=== PATIENT | female | born 1980 | race Hispanic/Latino ===

== ENCOUNTER 2017-02-06 16:16 | Outpatient (CLI) | payer OTHER ==
--- NOTE | 2017-02-06 16:37 | RAD ---
PA AND LATERAL VIEWS CHEST: 02/06/17 HISTORY: Chest pain, upper abdominal pain. FINDINGS: The cardiomediastinum is normal. The lungs are well expanded clear. The bony thorax is normal. IMPRESSION: Normal exam. POS: [facility]
== END 2017-02-06 16:17 | disposition home or self-care (01) ==
LOC: RAD-FRANK 16:16
PROVIDERS: ATTEND Nurse Practitioner Family
DX: R10.13 Epigastric pain (principal)
CPT/HCPCS: 71020

== ENCOUNTER 2017-07-29 14:03 | Outpatient (CLI) | payer BC ==
--- NOTE | 2017-07-30 17:42 | MMO ---
BILATERAL SCREENING MAMMOGRAMS: Date: 07/29/17 Comparison made to prior exams from 2017 and 2012 from outside institution. This patient's mammogram was interpreted with the assistance of computer-aided detection. FINDINGS: Scattered fibroglandular densities. There are benign calcifications which appear stable. No suspiciou s finding or interval change. Recommend one year follow-up. IMPRESSION: BIRADS 2: Benign Finding(s) POS: [facility]
== END 2017-07-29 14:04 | disposition home or self-care (01) ==
LOC: SCSMAMMO 14:03
PROVIDERS: ATTEND Nurse Practitioner Family
DX: Z12.31 Encounter for screening mammogram for malignant neoplasm of breast (principal)
CPT/HCPCS: 77067

== ENCOUNTER 2018-05-01 07:57 | Outpatient (CLI) | payer BC ==
--- NOTE | 2018-05-01 08:34 | RAD ---
CHEST 2 VIEWS: HISTORY: Cough. COMPARISON: 02/06/2017. FINDINGS: Cardiac silhouette and pulmonary vasculature are unremarkable. Mediastinum is midline. No confluent airspace consolidation, pneumothorax, or pleural fluid. IMPRESSION: No active cardiopulmonary abnormalities are demonstrated. POS: [facility]
== END 2018-05-01 07:58 | disposition home or self-care (01) ==
LOC: RAD-FRANK 07:57
PROVIDERS: ATTEND Nurse Practitioner Family
DX: R05 Cough (principal)
CPT/HCPCS: 71046

== ENCOUNTER 2018-08-03 15:37 | Outpatient (CLI) | payer BC ==
--- NOTE | 2018-08-03 16:31 | MMO ---
Bilateral MAMMO Bilat Screen [facility]. CLINICAL HISTORY: Patient is 38 years old and is seen for screening. The patient has no family history of breast cancer. The patient has a history of cervical cancer at age 22. VIEWS: The views performed were: bilateral craniocaudal with tomosynthesis and bilateral mediolateral oblique with tomosynthesis. FILMS COMPARED: The present examination has been compared to prior imaging studies performed at [facility] on 03/24/2012 and 07/19/2016. MAMMOGRAM FINDINGS: There are scattered fibroglandular densities. There are stable benign appearing calcifications seen in both breasts. There are no suspicious masses, suspicious calcifications, or new areas of architectural distortion. IMPRESSION: THERE IS NO MAMMOGRAPHIC EVIDENCE OF MALIGNANCY. A ROUTINE FOLLOW-UP MAMMOGRAM AT AGE 41 IS RECOMMENDED. THE RESULTS OF THIS EXAM WERE SENT TO THE PATIENT. ACR BI-RADS Category 2 - Benign finding MAMMOGRAPHY NOTE: 1. A negative mammogram report should not delay a biopsy if a dominant of clinically suspicious mass is present. 2. Approximately 10% to 15% of breast cancers are not detected by mammography. 3. Adenosis and dense breasts may obscure an underlying neoplasm.
== END 2018-08-03 15:38 | disposition home or self-care (01) ==
LOC: BICMAMMO 15:37
PROVIDERS: ATTEND Nurse Practitioner Family
DX: Z12.31 Encounter for screening mammogram for malignant neoplasm of breast (principal); Z85.41 Personal history of malignant neoplasm of cervix uteri
CPT/HCPCS: 77063; 77067

== ENCOUNTER 2021-11-05 15:31 | Outpatient (CLI) | payer OTHER | END 2021-11-05 15:32 | disposition home or self-care (01) | LOC: BICMAMMO 15:31 | PROVIDERS: ATTEND Nurse Practitioner Family | DX: Z12.31 Encounter for screening mammogram for malignant neoplasm of breast (principal); Z85.41 Personal history of malignant neoplasm of cervix uteri | CPT/HCPCS: 77063; 77067 ==

== ENCOUNTER 2024-12-14 15:42 | Outpatient (CLI) | payer BC | END 2024-12-14 15:43 | disposition home or self-care (01) | LOC: BICMAMMO 15:42 | PROVIDERS: ATTEND Nurse Practitioner Family | DX: Z12.31 Encounter for screening mammogram for malignant neoplasm of breast (principal) | CPT/HCPCS: 77063; 77067 ==